=== PATIENT | male | born 2000 | race Caucasian/White ===

== ENCOUNTER 2021-10-23 19:10 | Emergency (ER) | payer BC ==
[2021-10-23 19:16] VITALS: BP 134/72; PULSE 71; TEMP 98.5; BMI 29.0
== END 2021-10-23 20:08 | disposition home or self-care (01) ==
LOC: FER 19:10
PROC: 0HQGXZZ Repair Left Hand Skin, External Approach (ICD-10-PCS; principal; 2021-10-23)
DX: S61.213A Laceration without foreign body of left middle finger without damage to nail, initial encounter (principal); W26.0XXA Contact with knife, initial encounter
CPT/HCPCS: 99282-25